=== PATIENT | female | born 1940 | race African-American/Black ===

== ENCOUNTER 2021-01-30 16:55 | Inpatient (IN) | payer MEDICAID ==
[~2021-01-30] VITALS: Ht 154.9 cm; Wt 46.3 kg
--- NOTE | ~2021-01-30 | EMS ---
[facility] [address] [place] [address] EMS Patient Care Report Name: GINNY CAMPOS Room: [address] Ellen Upton#: [id number] Admission: 01/30/21 Attend Phys: Lisa Kovacs MD Discharge: Date of : 39 Report #: [id number] THIS REPORT FOR: //name// Report Transmitted: 01/31/2021 01:45 EMS Care Summary [place] Incident [id number] @ 01/30/2021 15:50 Incident Location [address] [place] [address] Patient GINNY CAMPOS Female, 80 Years 1940 Patient Address [address] [place] [address] Patient History Hypertension (HTN), Patient Allergies No known allergies, Patient Medications Lisinopril, Chief Complaint Altered Level of Consciousness Disposition Transported No Lights/[place] Dispatch Reason Unconscious/Fainting [facility] Narrative [facility] [address] WAS DISPATCHED TO THE LISTED LOCAL ADDRESS ON AN ALTERED LEVEL OF consciousness. ON SCENE, WE CONTACTED IFD WHO WAS AT PATIENT SIDE. THE PATIENT WAS SITTING IN A RECLINER, SHE APPEARED TO BE BREATHING BUT UNRESPONSIVE. IFD WAS ATTEMPTING TO AROUSE THE PATIENT WITH VERBAL AND PAINFUL stimuli. ON THE [facility] [address] [place] [address] EMS Patient Care Report Name: GINNY CAMPOS Room: [address] Jeanine.#: [id number] Admission: 01/30/21 Attend Phys: Lisa Kovacs MD Discharge: Date of : 39 Report #: [id number] SECOND ATTEMPT, THE PATIENT opened HER EYES. THE PATIENT WAS PLACED ON THE monitor. A FULL SET OF VITALS, LEVEL OF CONCIOUSNOUS, STOKE SCALE, AND BLOOD GLUCOSE WERE OBTAINED WHILE I GATHERED INFORMATION FROM THE PATIENTS SON. THE PATIENTS SON STATED HIS MOTHER (THE PATIENT) WAS JUST SITTING IN HER CHAIR WHEN "SHE ALL OF A SUDDEN SHE WENT unconscious." HE STATED HE TRIED TO WAKE HER UP BUT SHE wouldn't SO HE CALLED 911. THE PATIENTS SON PROVIDED BASIC PATIENT DEMOGRAPHICS AND MEDICAL HISTORY. I CONTACTED THE PATIENT AND CONDUCTED A PHYSICAL ASSESSMENT, SECONDARY STROKE SCALE, AND NEURO EXAM. WHEN ASKED ABOUT THE INCIDENT, THE PATIENT STATED SHE REMEMBERED SITTING IN HER CHAIR DOING HER CROSSWORD, THEN THE NEXT THING SHE REMEMBERS IS WAKING UP TO "US" IN HER LIVING ROOM. THE PATIENT DENIED ANY DIFFICULTY BREATHING, DIZZINESS/WEAKNESS, NAUSEA, VISION IMPAIRMENTS, TINGLING/NUMBNESS IN HER EXTREMITIES, OR CHEST PAIN BUT STATED SHE HAD A HEADACHE. THE PATIENT WAS PLACED ON A CAPNO CANNULA FOR MONITORING. THE PATIENTS VITALS WERE REVIEWED WITH HER AND SHE AGREED TO TRANSPORT FOR FURTHER EVALUATION. THE PATIENT STATED SHE HAS difficulty walking ON HER OWN AND REQUESTED SHE BE CARRIED TO THE STRETCHER LOCATED IN THE HALLWAY. USING A [place] CARRY, IFD TOOK THE PATIENT FROM HER LIVINGROOM TO THE STRETCHER WITHOUT INCIDENT. THE PATIENT WAS COVERED WITH A BLANKET THEN TRANSPORTED DOWN AND OUT TO THE AMBULANCE WERE SHE WAS LOADED AND SECURED WITHOUT INCIDENT. INSIDE THE AMBULANCE, AN ECG WAS OBTAINED AND SECONDARY ASSESSMENT COMPLETE. AN IV WAS SECURED AND FLUIDS ADMINISTERED. A BLOOD GLUCOSE WAS OBTAINED AND TRANSPORT WAS INITIATED. VITALS WERE MONITORED EN-ROUTE. REMAINING PATIENT INFORMATION AND MEDICAL HISTORY WAS GATHERED. THE PATIENT remained STABLE AND TALKATIVE DURING TRANSPORT. IT SHOULD BE NOTED DURING TRANSPORT, THE PATIENT STATED SHE HAD A SIMILAR syncopal EPISODE LAST NIGHT. SHE STATED SHE WAS SITTING ON THE EDGE OF HER BED, THEN THE NEXT THING SHE REMEMBERED WAS WAKING UP ON THE FLOOR. AT DESTINATION, THE PATIENT WAS REMOVED FROM ALL MONITORING AND FLUIDS. SHE SIGNED THE PRIVACY AND TRANSFER FORM. SHE WAS UNLOADED FROM THE AMBULANCE AND TAKEN INTO ROOM SEVEN (7). USING THE STRETCHERS BLANKET, [facility] CREW AND hospital STAFF MOVED THE PATIENT OFF THE STRETCHER, ONTO THE HOSPITAL BED WITHOUT INCIDENT. I GAVE RN THOMPSON A VERBAL PATIENT REPORT AND THE PATIENT BLOOD DRAWL. HE SIGNED THE RECEIVING FACILITY FORM, COMPLETING THE TRANSFER OF CARE. [facility] CREW CLEARED THE CALL. Initial Vitals @16:11Pain: 11/03, @16:45Pain: 11/03, @16:12SpO2: 97, @16:18SpO2: 97, @16:21SpO2: 95, @16:31SpO2: 98, @16:41SpO2: 100, @16:46SpO2: 100, @16:15 @16:16 @16:01P: 81,R: 12,BP: 82/51, [place] [address] EMS Patient Care Report Name: GINNY CAMPOS Room: [address] Won#: [id number] Admission: 01/30/21 Attend Phys: Lisa Kovacs MD Discharge: Date of : 39 Report #: [id number] @16:03P: 83,R: 12,BP: 81/49, @16:12P: 83,R: 12,BP: 104/72, @16:21P: 90,R: 12,BP: 128/95, @16:31P: 81,R: 12,BP: 147/73, @16:46P: 80,R: 12,BP: 118/74, @16:63YzRQ0: 26, @16:70RfSL6: 28, @16:03AqVE9: 29, @16:66TlDG0: 29, @16:43ZiKL8: 26, @16:96ZrUH1: 27, @16:01GCS: 14, @16:03GCS: 14, @16:12GCS: 15, @16:21GCS: 15, @16:31GCS: 15, @16:46GCS: 15, @15:58 @16:01 @16:02 @16:10 @16:24Glucose: 141, @16:01Glucose: 132, Assessments @15:58MENTAL:SKIN:HEENT:LUNG SOUNDS:ABDOMEN:PELVIS//GI:EXTREMITIES:PULSE:NEURO: Impression Syncope / Fainting Procedures @16:21 cc () Site: Forearm-LeftResponse: ImprovedSucceeded@16:30DINJ9 digital capnographyResponse: UnchangedSucceeded@16:36NQFX7 digital capnographyResponse: UnchangedSucceeded@16:38LYQX9 digital capnographyResponse: UnchangedSucceeded@16:41LYTP1 digital capnographyResponse: UnchangedSucceeded@16:57NUBA5 digital capnographyResponse: UnchangedSucceeded@16:76CDSE3 digital capnographyResponse: UnchangedSucceeded@16:1512-Lead ECGResponse: UnchangedSucceeded@16:1612-Lead ECGResponse: UnchangedSucceeded Timeline 00:00,Call Received 15:50,Dispatch Notified 15:50,Psap Call 15:50,[place] [address] EMS Patient Care Report Name: GINNY CAMPOS Room: [address] Won#: [id number] Admission: 01/30/21 Attend Phys: Lisa Kovacs MD Discharge: Date of : 38 Report #: [id number] 15:50,En Route 15:55,On Scene 15:58,At Patient 15:58,BP: / M,PULSE: ,RR: R,SPO2: Ox,ETCO2: ,BG: ,PAIN: ,GCS: , 16:01,BP: / M,PULSE: ,RR: R,SPO2: Ox,ETCO2: ,BG: ,PAIN: ,GCS: , 16:01,BP: 82/51 M,PULSE: 81,RR: 12 R,SPO2: Ox,ETCO2: ,BG: ,PAIN: ,GCS: , 16:01,BP: / M,PULSE: ,RR: R,SPO2: Ox,ETCO2: ,BG: ,PAIN: ,GCS: 14, 16:01,BP: / M,PULSE: ,RR: R,SPO2: Ox,ETCO2: ,B,PAIN: ,GCS: , 16:02,BP: / M,PULSE: ,RR: R,SPO2: Ox,ETCO2: ,BG: ,PAIN: ,GCS: , 16:03,BP: 81/49 M,PULSE: 83,RR: 12 R,SPO2: Ox,ETCO2: ,BG: ,PAIN: ,GCS: , 16:03,BP: / M,PULSE: ,RR: R,SPO2: Ox,ETCO2: ,BG: ,PAIN: ,GCS: 14, 16:10,BP: / M,PULSE: ,RR: R,SPO2: Ox,ETCO2: ,BG: ,PAIN: ,GCS: , 16:11,BP: / M,PULSE: ,RR: R,SPO2: Ox,ETCO2: ,BG: ,PAIN: 5,GCS: , 16:12,ETCO2 digital capnography,Response: UnchangedSucceeded, 16:12,BP: / M,PULSE: ,RR: R,SPO2: 97 Ox,ETCO2: ,BG: ,PAIN: ,GCS: , 16:12,BP: 104/72 M,PULSE: 83,RR: 12 R,SPO2: Ox,ETCO2: ,BG: ,PAIN: ,GCS: , 16:12,BP: / M,PULSE: ,RR: R,SPO2: Ox,ETCO2: 26 ,BG: ,PAIN: ,GCS: , 16:12,BP: / M,PULSE: ,RR: R,SPO2: Ox,ETCO2: ,BG: ,PAIN: ,GCS: 15, 16:15,12-Lead ECG,Response: UnchangedSucceeded, 16:15,BP: / M,PULSE: ,RR: R,SPO2: Ox,ETCO2: ,BG: ,PAIN: ,GCS: , 16:16,12-Lead ECG,Response: UnchangedSucceeded, 16:16,BP: / M,PULSE: ,RR: R,SPO2: Ox,ETCO2: ,BG: ,PAIN: ,GCS: , 16:18,ETCO2 digital capnography,Response: UnchangedSucceeded, 16:18,BP: / M,PULSE: ,RR: R,SPO2: 97 Ox,ETCO2: ,BG: ,PAIN: ,GCS: , 16:18,BP: / M,PULSE: ,RR: R,SPO2: Ox,ETCO2: 28 ,BG: ,PAIN: ,GCS: , 16:21, cc Site: Forearm-Left,Response: ImprovedSucceeded, 16:21,ETCO2 digital capnography,Response: UnchangedSucceeded, 16:21,BP: / M,PULSE: ,RR: R,SPO2: 95 Ox,ETCO2: ,BG: ,PAIN: ,GCS: , 16:21,BP: 128/95 M,PULSE: 90,RR: 12 R,SPO2: Ox,ETCO2: ,BG: ,PAIN: ,GCS: , 16:21,BP: / M,PULSE: ,RR: R,SPO2: Ox,ETCO2: 29 ,BG: ,PAIN: ,GCS: , 16:21,BP: / M,PULSE: ,RR: R,SPO2: Ox,ETCO2: ,BG: ,PAIN: ,GCS: 15, 16:24,BP: / M,PULSE: ,RR: R,SPO2: Ox,ETCO2: ,B,PAIN: ,GCS: , 16:24,Depart Scene 16:31,ETCO2 digital capnography,Response: UnchangedSucceeded, 16:31,BP: / M,PULSE: ,RR: R,SPO2: 98 Ox,ETCO2: ,BG: ,PAIN: ,GCS: , 16:31,BP: 147/73 M,PULSE: 81,RR: 12 R,SPO2: Ox,ETCO2: ,BG: ,PAIN: ,GCS: , 16:31,BP: / M,PULSE: ,RR: R,SPO2: Ox,ETCO2: 29 ,BG: ,PAIN: ,GCS: , 16:31,BP: / M,PULSE: ,RR: R,SPO2: Ox,ETCO2: ,BG: ,PAIN: ,GCS: 15, 16:41,ETCO2 digital capnography,Response: UnchangedSucceeded, 16:41,BP: / M,PULSE: ,RR: R,SPO2: 100 Ox,ETCO2: ,BG: ,PAIN: ,GCS: , 16:41,BP: / M,PULSE: ,RR: R,SPO2: Ox,ETCO2: 26 ,BG: ,PAIN: ,GCS: , 16:45,BP: / M,PULSE: ,RR: R,SPO2: Ox,ETCO2: ,BG: ,PAIN: 5,GCS: , 16:46,ETCO2 digital capnography,Response: UnchangedSucceeded, 16:46,BP: / M,PULSE: ,RR: R,SPO2: 100 Ox,ETCO2: ,BG: ,PAIN: ,GCS: , 16:46,BP: 118/74 M,PULSE: 80,RR: 12 R,SPO2: Ox,ETCO2: ,BG: ,PAIN: ,GCS: , 16:46,BP: / M,PULSE: ,RR: R,SPO2: Ox,ETCO2: 27 ,BG: ,PAIN: ,GCS: , [place] [address] EMS Patient Care Report Name: GINNY CAMPOS Room: [address]#: [id number] Admission: 01/30/21 Attend Phys: Lisa Kovacs MD Discharge: Date of : 38 Report #: [id number] 16:46,BP: / M,PULSE: ,RR: R,SPO2: Ox,ETCO2: ,BG: ,PAIN: ,GCS: 15, 16:51,At Destination 17:03,Call Closed Disclaimer v1.1 Copyright 2020 [employer] This EMS Care Summary contains data elements from the applicable legal record (which may be displayed differently). It is designed to provide pertinent information for the following purposes: continuity of care, clinical quality, and state data reporting. The complete legal record is available to ED staff and administrators of the receiving hospital in [employer]'s Patient Tracker. All data is provided "as is."
--- NOTE | ~2021-01-30 | PROC ---
[address] [address] PROCEDURE REPORT Name: GINNY CAMPOS Room: [address] ADM IN M.R.#: [id number] Admission: 01/31/21 Attend Phys: Lisa Kovacs MD Discharge: Date of : 38 Report #: [id number] THIS REPORT FOR: cc: FAM - No family physician/PCP FAM - No family physician/PCP [facility],Medical Records Staff ~ For GI report, please use the Provation report in [employer] 7 content. By: 1439Medical Records Staff PAYTON /KRANTHI
[2021-01-30 16:59] VITALS: BP 131/56
[2021-01-30 17:33] LABS: ABSOLUTE EOSINOPHILS 0.1 thou/uL (0.0-0.7); ABSOLUTE LYMPHOCYTES 2.7 thou/uL (0.8-5.3); ABSOLUTE MONOCYTES 0.5 thou/uL (0.0-1.2); ABSOLUTE NEUTROPHILS 5.4 thou/uL (1.6-8.1); BASOPHILS 0.2 %; EOSINOPHILS 0.6 %; HEMATOCRIT 33.2 % (37.0-47.0); HEMOGLOBIN 10.7 gm/dL (12.0-15.0); LYMPHOCYTES 31.1 %; MCH 25.4 pg (26.0-34.0); MCHC 32.3 g/dL (28.0-37.0); MCV 78.7 fL (80.0-100.0); MONOCYTES 6.2 %; MPV 6.8 fl. (7.2-11.1); NUCLEATED RBCS 0 /100WBC; PLATELET COUNT* 506 thou/uL (150-400); POLYS 61.9 %; RBC 4.22 mil/uL (4.20-5.00); RDW-CV 14.7 % (10.5-14.5); WBC 8.8 thou/uL (4.0-11.0)
[2021-01-30 17:36] LABS: CALCIUM 8.6 mg/dL (8.5-10.1); CREATININE 1.6 mg/dL (0.6-1.3); POTASSIUM 4.2 mmol/L (3.5-5.1)
[2021-01-30 17:40] LABS: ALBUMIN 3.3 g/dL (3.4-5.0); TOTAL BILIRUBIN 0.3 mg/dL (<0.1-1.0); TOTAL PROTEIN 8.6 g/dL (6.4-8.2)
[2021-01-30 18:56] LABS: ICTOTEST (BILI CONFIRMATORY) Negative (Negative); URINE BILIRUBIN 1+ (Negative); URINE BLOOD TRACE (Negative); URINE CLARITY CLEAR; URINE COLOR YELLOW; URINE GLUCOSE-RANDOM NEGATIVE (Negative); URINE KETONES NEGATIVE (Negative); URINE LEUKOCYTES NEGATIVE (Negative); URINE NITRITE NEGATIVE (Negative); URINE PROTEIN 1+ (Negative); URINE SPECIFIC GRAVITY 1.025 (1.005-1.030)
[2021-01-30 22:29] VITALS: BP 130/54
[2021-01-30 23:25] VITALS: BP 142/64
[2021-01-31 00:15] VITALS: BP 130/63
[2021-01-31 03:58] VITALS: BP 129/80
[2021-01-31 09:37] LABS: ALBUMIN 2.7 g/dL (3.4-5.0); CALCIUM 8.3 mg/dL (8.5-10.1); CREATININE 1.1 mg/dL (0.6-1.3); POTASSIUM 3.8 mmol/L (3.5-5.1); TOTAL BILIRUBIN 0.3 mg/dL (<0.1-1.0); TOTAL PROTEIN 7.4 g/dL (6.4-8.2)
--- NOTE | 2021-01-31 10:30 | EKG ---
[place] [address] ELECTROCARDIOGRAM REPORT Name: GINNY CAMPOS Room: [address]R.#: [id number] Admission: 01/30/21 Attend Phys: Lisa Kovacs, Discharge: Date of : 38 Date of Service: 01/30/21 1722 Report #: [id number] THIS REPORT FOR: //name// [facility] ED Test Date: 2021-01-30 Test Time: 17:22:45 Pat Name: GINNY CAMPOS Department: Room: [facility] Gender: F Manager Of Photography: NATHALY : 1940 Requested By: Rey Cash Order Number: [id number] MD: Brendon Zhu Measurements Intervals [place] Rate: 85 P: 43 IL: 163 QRS: -30 QRSD: 108 T: 22 QT: 415 QTc: 494 Interpretive Statements Sinus rhythm Ventricular premature complex Left axis deviation Consider anterior infarct No previous ECG available for comparison Electronically Signed On 01-31-2021 10:30:42 CDT by Brendon Zhu [email or web address] <ELECTRONICALLY SIGNED> By: Brendon Zhu MD, FACC 01/31/21 1030 1722 1722 Brendon Zhu MD, [facility] /EPI
[2021-01-31 12:00] VITALS: BP 121/99
[2021-01-31 16:00] VITALS: BP 92/56
[2021-01-31 20:20] VITALS: BP 98/60
[2021-02-01 00:39] VITALS: BP 120/67
[2021-02-01 04:01] VITALS: BP 120/60
[2021-02-01 05:23] LABS: HEMOGLOBIN 8.8 gm/dL (12.0-15.0)
[2021-02-01 05:29] LABS: ABSOLUTE EOSINOPHILS 0.1 thou/uL (0.0-0.7); ABSOLUTE LYMPHOCYTES 2.2 thou/uL (0.8-5.3); ABSOLUTE MONOCYTES 0.6 thou/uL (0.0-1.2); ABSOLUTE NEUTROPHILS 5.2 thou/uL (1.6-8.1); BASOPHILS 0.3 %; CALCIUM 8.3 mg/dL (8.5-10.1); EOSINOPHILS 1.1 %; HEMATOCRIT 26.9 % (37.0-47.0); LYMPHOCYTES 27.2 %; MCH 25.8 pg (26.0-34.0); MCHC 32.7 g/dL (28.0-37.0); MCV 79.1 fL (80.0-100.0); NUCLEATED RBCS 0 /100WBC; POLYS 64.4 %; POTASSIUM 4.7 mmol/L (3.5-5.1); RDW-CV 14.2 % (10.5-14.5); WBC 8.1 thou/uL (4.0-11.0)
[2021-02-01 05:33] LABS: CHOLESTEROL 157 mg/dL (<200); HDL CHOLESTEROL 54 mg/dL (>40); LDL CHOLESTEROL 89 mg/dL (<100); TC:HDL 2.9 Ratio (Not establshd); TRIGLYCERIDE 72 mg/dL (<150); VLDL 14 mg/dL (<40)
[2021-02-01 05:40] LABS: SERUM ASSESSMENT Clear
[2021-02-01 05:58] LABS: PLATELET COUNT* 404 thou/uL (150-400)
--- NOTE | 2021-02-01 08:08 | NUR ---
PATIENT HAS SLEPT OFF AND ON DURING THE NIGHT. VSS ON RA. MEDICATIONS GIVEN ORDERED AND CHARTED. PATIENT INCONTINENT OF BLADDER DURING THE NIGHT. ELY CARE PERFORMED. PATIENT DOES TURN SELF. IV IN LEFT FOREARM-SL. FALL PRECAUTIONS IN PLACE AND HOURLY ROUNDS MADE. WILL CONTINUE WITH PLAN OF CARE AND NURSING TO MONITOR.
[2021-02-01 12:00] VITALS: BP 99/74
[2021-02-01 16:00] VITALS: BP 100/72
[2021-02-02 01:33] VITALS: BP 111/62
[2021-02-02 04:06] LABS: GLYCOHEMOGLOBIN (HGB A1C) 5.8 % (4.8-5.6)
[2021-02-02 04:46] LABS: ABSOLUTE EOSINOPHILS 0.2 thou/uL (0.0-0.7); ABSOLUTE LYMPHOCYTES 2.7 thou/uL (0.8-5.3); ABSOLUTE MONOCYTES 0.7 thou/uL (0.0-1.2); ABSOLUTE NEUTROPHILS 4.3 thou/uL (1.6-8.1); BASOPHILS 0.3 %; EOSINOPHILS 2.1 %; HEMATOCRIT 25.6 % (37.0-47.0); HEMOGLOBIN 8.4 gm/dL (12.0-15.0); LYMPHOCYTES 34.7 %; MCH 25.8 pg (26.0-34.0); MCHC 32.6 g/dL (28.0-37.0); MONOCYTES 8.3 %; MPV 7.1 fl. (7.2-11.1); NUCLEATED RBCS 0 /100WBC; PLATELET COUNT* 414 thou/uL (150-400); POLYS 54.6 %; RBC 3.24 mil/uL (4.20-5.00); RDW-CV 14.4 % (10.5-14.5); WBC 7.8 thou/uL (4.0-11.0)
[2021-02-02 04:52] LABS: ALBUMIN 2.3 g/dL (3.4-5.0); CALCIUM 8.3 mg/dL (8.5-10.1); CREATININE 1.1 mg/dL (0.6-1.3); POTASSIUM 4.4 mmol/L (3.5-5.1); TOTAL BILIRUBIN 0.2 mg/dL (<0.1-1.0); TOTAL PROTEIN 6.6 g/dL (6.4-8.2)
[2021-02-02 05:38] VITALS: BP 116/56
[2021-02-02 08:00] VITALS: BP 122/80
--- NOTE | 2021-02-02 08:18 | NUR ---
PATIENT HAS SLEPT WELL THROUGHOUT MOST OF THE NIGHT. VSS ON RA. MEDICATIONS GIVEN ORDERED AND CHARTED. ASSESSMENT CHARTED. IV IN LEFT FOREARM-SL. FALL PRECAUTIONS IN PLACE AND HOURLY ROUNDS MADE. WILL CONTINUE WITH PLAN OF CARE AND NURSING TO MONITOR.
[2021-02-02 12:00] VITALS: BP 133/78
--- NOTE | 2021-02-02 12:42 | NUR ---
ASSUMED CARE OF PT AT 0730. PT A&0X4, DENIES ANY PAIN OR SHORTNESS OF BREATH AT THIS TIME. TRACING SR ON THE NEWS REEL CAMERAMAN. ON RA SAT UPPER 90'S. PT UP WITH 1-2 ASSIST-WEAKNESS AND UNSTEADINESS NOTED. PT HAD CT ABD/PELVIS THIS AM-AWAITING RESULTS AT THIS TIME. GI CONSULT IN PLACE. PT GOAL FOR TODAY IS CONTINUE GI WORK UP AND WORK WITH THERAPIES. PT WORKED WITH OT THIS AM-TOLERATED FAIR. AM ASSESSMENT CHARTED. MEDICATIONS PER AUG. PT REPOSITIONS SELF. HOURLY ROUNDING OBSERVED. BED IN LOW POSITION. CALL LIGHT WITHIN REACH. FALL PRECAUTIONS IN PLACE. BED ALARM IN PLACE. WILL CONTINUE PLAN OF CARE.
--- NOTE | 2021-02-02 15:23 | NUR ---
Pt is A&O. Resides at home alone. Independent. Pt states that she has a caregiver that comes in once/week. Pt uses a walker for mobility. No hx of HH or SNF. CM left for Pt's son to confirm living situation, await call back. GI following. Anticipate dc tomorrow pending GI clearance.
[2021-02-02 16:00] VITALS: BP 111/71
[2021-02-02 20:05] VITALS: BP 114/62
[2021-02-03 00:04] VITALS: BP 104/62
[2021-02-03 04:10] VITALS: BP 138/72
--- NOTE | 2021-02-03 04:29 | NUR ---
PT ALERT TO SELF, PLACE AND SITUATION, SOME CONFUSION. SHE SLEPT ALL SHIFT, NO REPORTS OF ANY PAIN OR NAUSEA. RECEIVED ALL MEDS A SCHEDULED. DID NOT GET UP ALL SHIFT. NO SKIN ISSUES, ENCOURAGED HYDRATION. AWAITING LAB RESULTS
[2021-02-03 07:45] VITALS: BP 117/72
[2021-02-03 12:00] VITALS: BP 93/50
[2021-02-03 12:01] LABS: ABSOLUTE EOSINOPHILS 0.1 thou/uL (0.0-0.7); ABSOLUTE LYMPHOCYTES 1.7 thou/uL (0.8-5.3); ABSOLUTE MONOCYTES 0.7 thou/uL (0.0-1.2); ABSOLUTE NEUTROPHILS 4.4 thou/uL (1.6-8.1); BASOPHILS 0.4 %; EOSINOPHILS 2.1 %; HEMATOCRIT 29.2 % (37.0-47.0); HEMOGLOBIN 9.2 gm/dL (12.0-15.0); LYMPHOCYTES 23.6 %; MCH 24.9 pg (26.0-34.0); MCHC 31.4 g/dL (28.0-37.0); MCV 79.5 fL (80.0-100.0); MONOCYTES 10.7 %; MPV 6.5 fl. (7.2-11.1); NUCLEATED RBCS 0 /100WBC; PLATELET COUNT* 436 thou/uL (150-400); POLYS 63.2 %; RBC 3.67 mil/uL (4.20-5.00); RDW-CV 14.1 % (10.5-14.5)
--- NOTE | 2021-02-03 13:03 | NUR ---
Anticipate dc tomorrow. GI and neuro following. Plan iv iron. Goal home at dc.
--- NOTE | 2021-02-03 15:40 | NUR ---
ORDERS RECEIVED FOR SUPPOSITORY-GIVEN PER EMAR WITH SUCCESS-PT HAD VERY LARGE BOWEL MOVEMENT. PT STARTED ON IV IRON PER EMAR. DR ABBASI HERE TO SEE PT. ORDERS RECEIVED FOR EGD IN AM. PT NPO AFTER MIDNIGHT. WILL CONTINUE PLAN OF CARE.
[2021-02-03 16:00] VITALS: BP 110/54
[2021-02-03 20:09] VITALS: BP 108/62
[2021-02-04] VITALS (7 sets, daily range): BP systolic 117–141; BP diastolic 61–86
[2021-02-04 05:11] LABS: HEMATOCRIT 29.5 % (37.0-47.0); HEMOGLOBIN 9.5 gm/dL (12.0-15.0); MCH 25.6 pg (26.0-34.0); MCHC 32.2 g/dL (28.0-37.0); MCV 79.6 fL (80.0-100.0); RBC 3.71 mil/uL (4.20-5.00); RDW-CV 14.6 % (10.5-14.5); WBC 8.9 thou/uL (4.0-11.0)
[2021-02-04 05:13] LABS: ALBUMIN 2.5 g/dL (3.4-5.0); CALCIUM 8.4 mg/dL (8.5-10.1); CREATININE 1.1 mg/dL (0.6-1.3); POTASSIUM 4.4 mmol/L (3.5-5.1); TOTAL BILIRUBIN 0.2 mg/dL (<0.1-1.0)
--- NOTE | 2021-02-04 12:38 | NUR ---
Pt to have EGD today. Anticipate that Pt will be medically stable to dc tomorrow. Per , neuro recommending MIGUE. CM to contact Pt's son to discuss MIGUE, including costs. If Pt is unable to afford, will plan on home dc. Pt has REFUGIO only, can have a HH nurse only.
--- NOTE | 2021-02-04 17:35 | CON ---
[address] [address] CONSULTATION Name: GINNY CAMPOS Room: [address] ADM IN M.R.#: [id number] Admission: 01/31/21 Attend Phys: Lisa Kovacs MD Discharge: Date of : 38 Report #: [id number] THIS REPORT FOR: cc: FAM - No family physician/PCP FAM - No family physician/PCP Bob Zamora MD ~ DATE OF CONSULTATION: 02/02/2021 The patient does not have a PCP. Please note at the time of this dictation, the patient was seen and physically examined by myself. REASON FOR CONSULTATION: Anemia. HISTORY OF PRESENT ILLNESS: This is an 80-year-old female presenting to the hospital with increased weakness and some stroke-like symptoms. She denies any chest pain, nausea, vomiting, loss of appetite, abdominal pain, no weight loss, and no symptoms of any overt bleeding that she describes. The patient is a little confused, but can answer questions appropriately. The patient states she just got really weak and kind of slid out of bed. ALLERGIES: No known drug allergies. MEDICATIONS FROM HOME: Unknown. PAST MEDICAL HISTORY: Unknown. PAST SURGICAL HISTORY: Unknown. FAMILY HISTORY: The patient states noncontributory, none. SOCIAL HISTORY: She lives at home with her son. Denies any alcohol or tobacco use. REVIEW OF SYSTEMS: 12 point review of systems is essentially negative except what is mentioned in the HPI. PHYSICAL EXAMINATION: VITAL SIGNS: Temperature 36.2, pulse 64, respirations 18, blood pressure 116/56. HEART: Regular rate and rhythm. LUNGS: Diminished but clear. ABDOMEN: Soft, positive bowel sounds in all 4 quadrants with [place] [address] CONSULTATION Name: GINNY CAMPOS Room: [address] IN .R.#: [id number] Admission: 01/31/21 Attend Phys: Lisa Kovacs MD Discharge: Date of : 38 Report #: [id number] LABORATORY DATA: Hemoglobin on admission was 10.7. She is 8.4 today. White count is 7.8, platelets 414. GFR is 58. LFTs are normal. ESR was 55. Ultrasound showed a fatty liver and an absent gallbladder. CT of the head was essentially negative. Chest x-ray negative. IMPRESSION: 1. Anemia, microcytic. 2. Fatty liver. 3. Chronic kidney disease. 4. Increased weakness. 5. Question underlying dementia. PLAN: 1. Await CT of the abdomen and pelvis this a.m. 2. May consider endoscopic evaluation depending on the above. 3. Lab, while add soluble transferrin receptor, iron studies and ferritin are still pending. 4. Overall, monitor for overt bleeding. 5. Further recommendations to be made once the above has been noted when Dr. Zamora sees the patient later today. Thank you for allowing us to participate in this patient's care. Please do not hesitate to call with any questions regarding this consult. <ELECTRONICALLY SIGNED> By: Bob Zamora MD 02/04/21 1735 0852 Bob Zamora MD /nt
--- NOTE | 2021-02-04 18:21 | NUR ---
PT HAD EGD TODAY-REFER TO RESULTS. DENIES ANY PAIN OR SHORTNESS OF BREATH. INCONT OF BLADDER. PT WORKED WITH PHYSICAL THERAPY TODAY-DID NOT TOLERATE WELL-VERY UNSTEADY AND UNABLE TO STAND. NEURO CONSULT IN PLACE. CALL LIGHT WITHIN REACH. WILL CONTINUE PLAN OF CARE.
[2021-02-05] VITALS (8 sets, daily range): BP systolic 103–119; BP diastolic 60–67
--- NOTE | 2021-02-05 04:54 | NUR ---
PT IS ALERT AND ORIENTED, ROOM AIR. SINUS RHYTHM. BEDREST, Q2 TURN, INCONTINENT OF URINE. NO REPORTS OF PAIN OR NAUSEA. SHE SLEPT WELL ALL SHIFT. NO REMARKABLE EVENTS OVERNIGHT.
[2021-02-05] MEDS ORDERED: PROTONIX40 M2 PO (08:52)
[2021-02-05] MEDS ORDERED: CARAFATE 1 GM TA1 G1 PO (08:52)
[2021-02-05] MEDS ORDERED: PRENATE ELITE1 EACH PO (08:52)
[2021-02-05] MEDS ORDERED: ASA81BEC PO (08:52)
[2021-02-05] MEDS ORDERED: MIRALAX17 GM PO (08:55)
--- NOTE | 2021-02-05 12:00 | NUR ---
Pt medically stable to dc. JULES was not able to make contact with son regarding LONG TERM, Pt will dc to home today with a nurse. CM faxed referral to Home Health, they will also screen Pt for in home care givers through her [place] [facility]. [facility] p:[phone] f:[phone]
--- NOTE | 2021-02-06 13:08 | PATH ---
[address] [address] PATHOLOGY RPT PROCEDURE Name: ALTHEA CAMPOS Room: [address] IN M.R.#: [id number] Admission: 01/31/21 Date of : 38 Discharge: 02/05/21 Report #: [id number] Path Case #: [id number] [facility] Accession Number: [id number] . 01 Material submitted: . ANTRUM - ANTRAL EROSIONS . 01 Clinical history: . EGD IN OR . 02 Diagnosis: Antral erosions: - Severe chronic active antral gastritis with abundant Helicobacter pylori organisms, negative for granulomas and dysplasia. (RICA:[email or web address]; 02/06/2021) . . Special stain: H. pylori immuno MBR 02/06/2021 1031 Local . 02 Electronically signed: . Ki Davis MD, Pathologist NPI- [id number] . 01 Gross description: . The specimen is received in formalin, labeled "Sharath, Althea, antral erosion". Received are 3 segments of pale wilson tissue ranging in size from 0.3 to 0.4 cm in maximum dimensions. The specimen is submitted entirely in cassette A1.([facility]; 02/05/2021) [facility] 02/05/2021 1749 Local . 02 Pathologist provided ICD-10: K29.50, B96.81 . 02 CPT . 598808, F18151 Specimen Comment: A courtesy copy of this report has been sent to [phone], [phone] Specimen Comment: [id number] Specimen Comment: Report sent to / DR ABBASI Performed at: [address], [place] [id number] MD Felipe Cavanaugh MD Phone: [phone] Performed at: 02 [facility] [address], [place], [place] [address] MD Ki Davis MD Phone: [phone]
== END 2021-02-05 15:00 | disposition home health service (06) | DRG 812 ==
LOC: M.ERS 16:55 → M.TBA-ER 18:54 → M.2W 23:57
PROVIDERS: Emergency Medicine; Internal Medicine; Nurse Practitioner Adult Health; ADMIT Internal Medicine; ATTEND Internal Medicine
PROC: 0HBRXZZ Excision of Toe Nail, External Approach (ICD-10-PCS; principal; 2021-02-03)
PROC: 0DB78ZX Excision of Stomach, Pylorus, Via Natural or Artificial Opening Endoscopic, Diagnostic (ICD-10-PCS; principal; 2021-02-03)
DX: D50.9 Iron deficiency anemia, unspecified (principal); N17.9 Acute kidney failure, unspecified; G45.9 Transient cerebral ischemic attack, unspecified; E86.0 Dehydration; K76.0 Fatty (change of) liver, not elsewhere classified; N18.9 Chronic kidney disease, unspecified; F03.90 Unspecified dementia, unspecified severity, without behavioral disturbance, psychotic disturbance, mood disturbance, and anxiety; E53.8 Deficiency of other specified B group vitamins; K44.9 Diaphragmatic hernia without obstruction or gangrene; Z60.2 Problems related to living alone; K31.9 Disease of stomach and duodenum, unspecified; K29.70 Gastritis, unspecified, without bleeding; Z79.82 Long term (current) use of aspirin; Z79.899 Other long term (current) drug therapy; Z20.822 Contact with and (suspected) exposure to COVID-19